=== PATIENT | female | born 1970 | race African-American/Black ===

== ENCOUNTER 2018-06-03 11:51 | Emergency (ER) | payer OTHER ==
[2018-06-03 12:07] VITALS: TEMP 98.6; BMI 43.9
--- NOTE | 2018-06-03 12:21 | PDOC ---
Attending Attestation - HPI HPI: 06/03/18 13:13 The patient is a 48-year-old female with past medical history significant for HTN, Kidney stone, DVT (2013, was on Lovenox for 1 month) presents to the emergency department with leg pain. The patient reports shes [place] amb[place] the [place] when an acute onset of R. leg pain presented. The patient reports she had been ambulating more than usual, secondary to starting a new job. The patient reports the pain is aggravated with flexion, with the severity of 8/10, relief noted with Ibuprofen. The patient reports associated concern of soreness to the back fo the legs and back pain to the lumbar region, with radiation bilaterally. Denies trauma or injury to the leg, recent travel or long car rides, fever, chills, nausea, vomiting, chest pain, or shortness of breath. The patient reports the pain is similar to prior DVT, but a little worse. Allergies: NKA Social history: No past or present use of tobacco, alcohol or recreational drug use. Surgical history: None reported PCP: Dr. Cuong Cabezas - Physicial Exam PE: 06/03/18 13:17 GENERAL: Awake, alert, and fully oriented, in no acute distress EXTREMITIES: No edema, tenderness, ecchymosis, erythema, deformities. - Medical Decision Making 06/03/18 13:14 Documentation prepared by April Farias, acting as vp medical for Nicole Gallardo MD. <April Farias - Last Filed: 06/03/18 13:17> - Medical Decision Making 06/03/18 14:03 Pt presents to the ED complaining of R leg pain and swelling that started while walking to the bus. Denies trauma. Pain is mostly confined to the area behind her R knee. Duplex performed to rule out dvt and is negative for thrombosis, but positive for popliteal cyst. Will discharge home with ibuprofen for randall' s cyst. <Nicole Gallardo - Last Filed: 06/03/18 14:08>
--- NOTE | 2018-06-03 12:48 | PDOC ---
History of Present Illness - General Chief Complaint: Pain Stated Complaint: PAIN Time Seen by Provider: 06/03/18 12:13 - History of Present Illness Initial Comments: 06/03/18 12:38 48F w/ pmhx of HTN and DVT (2013) presents with 4 day history of R lower extremity pain. Pt states the pain started while walking home from work to the train station. Pain is described as 8/10 and is worsened with knee flexion. Pain is alleviated with knee extension. She denies any trauma to the R lower extremity. Additionally, she complains of new onset back pain for the past 2 days. Pain starts in the lumbar region and radiates bilaterally. Back pain is rated 5/10. She states taking Ibuprofen which has given her mild relief from her pain. Denies hx of bleeding d/o, recent travel, miscarriages. Also denies f/ c, n/v, sob, chest pain, abd pain, urinary/bowel symptoms, vision changes, unintentional weight loss/gain. Of note, pt states she has had a history of DVT in 2013 where she was treated with Lovenox. She reports that her current pain is similar in nature when she had her previous DVT, but is more painful. 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 Past History - Past Medical History Allergies/Adverse Reactions: Allergies Allergy/AdvReac Type Severity Reaction Status Date / Time No Known Allergies Allergy Verified 06/03/18 12:07 Home Medications: Ambulatory Orders Amlodipine Besylate 10 mg PO DAILY 06/03/18 Asthma: No Cardiac Disorders: Yes (heart murmur) CVA: No COPD: No Diabetes: No GI Disorders: No Disorders: No HTN: Yes Hypercholesterolemia: No Kidney Stones: Yes Seizures: No - Surgical History Abdominal Surgery: No - Reproductive History (#): 1 Para: 1 - Suicide/Smoking/Psychosocial Hx Smoking Status: No Smoking History: Never smoked Have you smoked in the past 12 months: No Number of Cigarettes Smoked Daily: 0 Hx Alcohol Use: No Drug/Substance Use Hx: No Substance Use Type: None Hx Substance Use Treatment: No Review of Systems - Review of Systems Able to Perform ROS?: Yes Is the patient limited Marshallese proficient: No Constitutional: No: Chills, Fever HEENTM: No: Recent change in vision Respiratory: No: Shortness of Breath Cardiac (ROS): No: Chest Pain, Lightheadedness ABD/GI: No: Constipated, Diarrhea Musculoskeletal: Yes: See HPI (+Renay's sign) Neurological: No: Weakness, Unsteady Gait Endocrine: No: Change in Weight Hematologic/Lymphatic: No: Easy Bleeding, Easy Bruising (radiates bilaterally) *Physical Exam - Vital Signs Last Vital Signs Temp Pulse Resp BP Pulse Ox 98.6 F 49 L 18 151/63 100 06/03/18 12:04 06/03/18 12:04 06/03/18 12:04 06/03/18 12:04 06/03/18 12:04 - Physical Exam General Appearance: Yes: Appropriately Dressed, Obese HEENT: positive: EOMI, JESICA Neck: positive: Supple Respiratory/Chest: positive: Lungs Clear, Normal Breath Sounds Cardiovascular: positive: Regular Rhythm, Regular Rate, S1, S2, Systolic Murmur Vascular Pulses: Dorsalis-Pedis (R): 2+, Doralis-Pedis (L): 2+ Gastrointestinal/Abdominal: positive: Normal Bowel Sounds, Tender (mild tenderness to LUQ), Soft Musculoskeletal: positive: Vertebral Tenderness (lumbar spine, radiates bilaterally) Extremity: positive: Normal Range of Motion, Calf Tenderness (R lower extremity , ). 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 Will obtain RLE duplex for now. 06/03/18 14:00 -RLE Duplex neg for acute DVT. There is a 3.3 x 1.4 x 2.5 cm Merlos's cyst. -Recommend patient to cont taking Ibuprofen for pain and follow up with PCP. -DC to home *DC/Admit/Observation/Transfer Diagnosis at time of Disposition: Leg pain Qualifiers: Laterality: right Qualified Code(s): M79.604 - Pain in right leg - Discharge Dispostion Disposition: HOME Condition at time of disposition: Good Decision to Admit order: No - Referrals Referrals: Donna Hernandez MD [Primary Care Provider] - - Patient Instructions Additional Instructions: You were seen in the ED for complaints of right lower leg pain. In the ED, an ultrasound of your right leg was done that did not show any acute DVT (deep vein thrombosis), but did show a Merlos's cyst. There is no acute need for inpatient hospitalization at this time. You are being discharged home. Please follow up with your primary care doctor within 1 week. Please continue to take Ibuprofen for pain. If you experience worsening leg pain/swelling/redness, shortness of breath, chest pain, or problems walking, please proceed to your nearest emergency department immediately. - Post Discharge Activity
[2018-06-03 14:21] VITALS: BP 145/74; PULSE 47
== END 2018-06-03 14:19 | disposition home or self-care (01) ==
LOC: JER 11:51
DX: M71.21 Synovial cyst of popliteal space [Baker], right knee (principal); I10 Essential (primary) hypertension; Z86.718 Personal history of other venous thrombosis and embolism
CPT/HCPCS: 93971-TC; 99282-25

== ENCOUNTER 2018-12-27 03:21 | Observation (INO) | payer OTHER | END 2018-12-29 13:32 | disposition home or self-care (01) | LOC: JER 03:21 → JERBED 06:43 → J4W 22:57 ==

== ENCOUNTER 2019-04-05 23:01 | Emergency (ER) | payer OTHER ==
[2019-04-05 23:11] VITALS: BMI 44.1
--- NOTE | 2019-04-06 01:55 | PDOC ---
Attending Attestation - Resident Resident Name: PauletteCesario - ED Attending Attestation I have performed the following: I have examined & evaluated the patient, The case was reviewed & discussed with the resident, I agree w/resident's findings & plan - HPI HPI: 04/06/19 06:05 Pt comes with vaginal bleeding after sex; she had a PAP smear with ob?nurse obgyn Dr. Tavarez in Aug 6 months ago. Pt has no other medical issues. 04/06/19 06:07 Pt bled yesterday; today only soaked 1 pad, all day. We are not concerned about the level of bleeding. - Physicial Exam PE: 04/06/19 06:06 Agree with resident exam. Pt has an area of bleeding/friable vs injured skin at the cervix around 6 o' clock. Pt has no tenderness and no vaginal lacerations. - Medical Decision Making 04/06/19 06:07 Pt will follow with Dr. Tavarez next week. Return for worsening bleeding and/or dizziness, SOB, CP.
--- NOTE | 2019-04-06 03:00 | PDOC ---
History of Present Illness - General Chief Complaint: Vaginal Bleeding Stated Complaint: VAGINAL BLEEDING Time Seen by Provider: 04/06/19 01:54 History Source: Patient Exam Limitations: No Limitations - History of Present Illness Initial Comments: 48 yo F with no pmhx presents to the emergency department with painless vaginal bleeding that occurred starting yesterday after intercourse. Per the patient, she was abstinent for 1 year prior to the engagement. She states she had a pap smear [address] Tavarez that was negative. 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 Denies the following: vaginal foul discharge, dysuria, hematuria, diarrhea, abdominal pain, hematochezia, chest pain, SOB, fever, nausea, vomiting , and chills. Allergies: NKDA Past History - Past Medical History Allergies/Adverse Reactions: Allergies Allergy/AdvReac Type Severity Reaction Status Date / Time No Known Allergies Allergy Verified 04/05/19 23:11 Home Medications: Ambulatory Orders Amlodipine Besylate 10 mg PO DAILY 06/03/18 Amoxicillin/Potassium Clav [Amox-Clav 875-125 mg Tablet] 1 each PO BID 04/06/19 Asthma: No Cardiac Disorders: Yes (heart murmur) CVA: No COPD: No Diabetes: No GI Disorders: No Disorders: No HTN: Yes Hypercholesterolemia: No Kidney Stones: Yes Seizures: No - Surgical History Abdominal Surgery: No - Reproductive History Is Patient Now?: No (#): 1 Para: 1 Spontaneous : 0 - Suicide/Smoking/Psychosocial Hx Smoking Status: No Smoking History: Never smoked Have you smoked in the past 12 months: No Number of Cigarettes Smoked Daily: 0 Information on smoking cessation initiated: No Hx Alcohol Use: No Drug/Substance Use Hx: No Substance Use Type: None Hx Substance Use Treatment: No Review of Systems - Review of Systems Able to Perform ROS?: Yes Is the patient limited Burkinan proficient: No Constitutional: No: Chills, Diaphoresis, Fever, Weakness HEENTM: No: Blurred Vision, Double Vision, Ear Pain, Nose Pain, Throat Pain, Mouth Pain Respiratory: No: Cough, Shortness of Breath, Hemoptysis Cardiac (ROS): No: Chest Pain, Lightheadedness, Palpitations, Syncope ABD/GI: No: Constipated, Diarrhea, Nausea, Rectal Bleeding, Vomiting, Tarry Stools : Yes: Other (vaginal bleeding). No: Burning, Dysuria Musculoskeletal: No: Back Pain, Joint Pain, Neck Pain Integumentary: No: Bruising, Erythema, Rash Neurological: No: Headache, Numbness, Tingling, Tremors Psychiatric: No: Change in Appetite Endocrine: No: Unexplained Weight Gain Hematologic/Lymphatic: No: Anemia *Physical Exam - Vital Signs Last Vital Signs Temp Pulse Resp BP Pulse Ox 97.5 F L 65 18 149/75 100 04/06/19 01:10 04/06/19 01:10 04/06/19 01:10 04/06/19 01:10 04/06/19 01:10 - Physical Exam General Appearance: Yes: Nourished, Appropriately Dressed. No: Apparent Distress, Intoxicated HEENT: positive: EOMI, JESICA, Normal Voice, Symmetrical, Pharynx Normal, Hearing Grossly Normal. negative: Pale Conjunctivae, Scleral Icterus (R), Scleral Icterus (L), Muffled/Hoarse voice, Pharyngeal Erythema, Tonsillar Exudate, Tonsillar Erythema, Nasal Congestion, Rhinorrhea, Excessive drooling Neck: positive: Trachea midline, Supple. negative: Tender, Decreased range of motion, Lymphadenopathy (R), Lymphadenopathy (L), Tender lateral, Tender midline Respiratory/Chest: positive: Lungs Clear, Normal Breath Sounds. negative: Chest Tender, Respiratory Distress, Accessory Muscle Use Cardiovascular: positive: Regular Rhythm, Regular Rate, S1, S2. negative: Systolic Murmur Female Pelvic Exam: positive: normal external exam, cervical os closed, normal adnexa, lesions (friable lesion on cervix at the 6'oclock position. fungating mass in appearance. ), vaginal bleeding (not active bleeding) Gastrointestinal/Abdominal: positive: Normal Bowel Sounds, Flat, Soft. negative : Tender Lymphatic: negative: Adenopathy Musculoskeletal: positive: Normal Inspection. negative: CVA Tenderness, Vertebral Tenderness Extremity: positive: Normal Capillary Refill, Normal Inspection, Normal Range of Motion. 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 Initial vitals: Initial Vital Signs Temp Pulse Resp BP Pulse Ox 98.1 F 66 17 152/74 100 04/05/19 23:09 04/05/19 23:09 04/05/19 23:09 04/05/19 23:09 04/05/19 23:09 Work up: Laboratory Tests 04/06/19 04/06/19 04/06/19 03:30 03:30 03:30 WBC RBC Hgb Hct MCV MCH MCHC RDW Plt Count MPV Absolute Neuts (auto) Neutrophils % Lymphocytes % Monocytes % Eosinophils % Basophils % Nucleated RBC % Sodium Potassium Chloride Carbon Dioxide Anion Gap BUN Creatinine Est GFR (CKD-EPI)AfAm Est GFR (CKD-EPI)NonAf Random Glucose Calcium Total Bilirubin AST ALT Alkaline Phosphatase Total Protein Albumin Beta HCG, Quant Urine Color Yellow Urine Appearance Error Urine pH 5.5 Ur Specific [place] 1.017 Urine Protein Negative Urine Glucose (UA) Negative Urine Ketones Negative Urine Blood 3+ H Urine Nitrite Negative Urine Bilirubin Negative Urine Urobilinogen 0.2 Ur Leukocyte Esterase 1+ H Urine WBC (Auto) 1 Urine RBC (Auto) 345 Urine Casts (Auto) 14 U Pathogenic Cast Auto None U Epithel Cells (Auto) 5.2 Urine Bacteria (Auto) 1.2 Urine HCG, Qual Negative C. trachomatis (FAMILIA) Negative N. gonorrhoeae (FAMILIA) Negative 04/06/19 04/06/19 04/06/19 03:30 03:30 03:30 WBC 9.4 RBC 4.39 Hgb 11.1 Hct 35.0 MCV 79.7 L MCH 25.4 L MCHC 31.8 L RDW 15.0 Plt Count 315 MPV 6.6 L Absolute Neuts (auto) 6.3 Neutrophils % 66.1 Lymphocytes % 26.1 Monocytes % 6.8 Eosinophils % 0.3 Basophils % 0.7 Nucleated RBC % 0 Sodium 138 Potassium 4.1 Chloride 104 Carbon Dioxide 28 Anion Gap 7 L BUN 11.1 Creatinine 0.7 Est GFR (CKD-EPI)AfAm 120.43 Est GFR (CKD-EPI)NonAf 103.90 Random Glucose 100 Calcium 9.4 Total Bilirubin 0.5 AST 13 L ALT 15 Alkaline Phosphatase 59 Total Protein 8.5 H Albumin 3.7 Beta HCG, Quant < 1.0 Urine Color Urine Appearance Urine pH Ur Specific [place] Urine Protein Urine Glucose (UA) Urine Ketones Urine Blood Urine Nitrite Urine Bilirubin Urine Urobilinogen Ur Leukocyte Esterase Urine WBC (Auto) Urine RBC (Auto) Urine Casts (Auto) U Pathogenic Cast Auto U Epithel Cells (Auto) Urine Bacteria (Auto) Urine HCG, Qual C. trachomatis (FAMILIA) N. gonorrhoeae (FAMILIA) negative and negative for anemia. patient has blood in the urine likely from vaginal bleeding. no UTI. patient to be followed by her OBGYN physician for follow up care and management. given strict return precautions. Dispo: Discharge *DC/Admit/Observation/Transfer Diagnosis at time of Disposition: Vaginal bleeding - Discharge Dispostion Disposition: HOME Decision to Admit order: No - Referrals Referrals: Donna Hernandez MD [Primary Care Provider] - Angelica Tavarez MD [Staff Physician] - - Patient Instructions Printed Discharge Instructions: DI for Vaginal Bleeding Additional Instructions: You were seen in the emergency department for the evaluation of your vaginal bleeding. Your laboratory work was negative for acute process. Please follow up with your OBGYN physician for follow up care and management. Please return to the emergency department if you have worsening symptoms or new concerning symptoms. Thank you. - Post Discharge Activity
[2019-04-06 03:43] LABS: BASO % 0.7 % (0-2.0); EOS % 0.3 % (0-4.5); HEMOGLOBIN 11.1 GM/dL (10.7-15.3); LYMPH % 26.1 % (8-40); MCH 25.4 pg (25.7-33.7); MCHC 31.8 g/dl (32.0-36.0); MEAN CELL VOLUME 79.7 fl (80-96); MEAN PLT VOLUME 6.6 fl (7.5-11.1); MONO % 6.8 % (3.8-10.2); NEUT % 66.1 % (42.8-82.8); PLATELET COUNT 315 K/MM3 (134-434); RBC 4.39 M/mm3 (3.60-5.2); WHITE BLOOD COUNT 9.4 K/mm3 (4.0-10.0)
[2019-04-06 03:44] LABS: EPI CELLS 5.2 /HPF (0-5/HPF); HYALINE CASTS 14 /lpf (0-8); PH,URINE 5.5 (5.0-8.0); URINE APPEARANCE Error; URINE BACTERIA 1.2 /hpf (NEGATIVE); URINE BILIRUBIN NEGATIVE (NEGATIVE); URINE COLOR YELLOW; URINE GLUCOSE (UA) NEGATIVE (NEGATIVE); URINE KETONE NEGATIVE (NEGATIVE); URINE LEUK ESTERASE 1+ (NEGATIVE); URINE NITRITE NEGATIVE (NEGATIVE); URINE PROTEIN NEGATIVE (NEGATIVE); URINE RBC 345 /hpf (0-4); URINE UROBILINOGEN 0.2 mg/dL (0.2-1.0); URINE WBC 1 /hpf (0-5)
[2019-04-06 04:08] LABS: ALBUMIN 3.7 g/dl (3.4-5.0); BILIRUBIN,TOTAL 0.5 mg/dL (0.2-1); BLOOD UREA NITROGEN 11.1 mg/dL (7-18); CALCIUM 9.4 mg/dL (8.5-10.1); CREATININE 0.7 mg/dL (0.55-1.3); POTASSIUM 4.1 mmol/L (3.5-5.1); TOT PROT 8.5 g/dl (6.4-8.2)
[2019-04-06 05:10] VITALS: BP 151/85; PULSE 60; TEMP 98.3
== END 2019-04-06 06:13 | disposition home or self-care (01) ==
LOC: JER 23:01
DX: N93.0 Postcoital and contact bleeding (principal)
CPT/HCPCS: 36415; 80053; 81003; 84702; 84703; 85025; 87086; 87491; 87591; 99283-25

== ENCOUNTER 2021-09-27 09:49 | Emergency (ER) | payer BC ==
[2021-09-27 10:09] VITALS: BP 147/83; PULSE 71; TEMP 97.7; BMI 46.5
[2021-09-27 11:37] LABS: BASO % 0.4 % (0-2.0); EOS % 5.1 % (0-4.5); HEMOGLOBIN 11.3 GM/dL (10.7-15.3); LYMPH % 24.5 % (8-40); MCH 26.4 pg (25.7-33.7); MCHC 32.3 g/dl (32.0-36.0); MEAN CELL VOLUME 81.6 fl (80-96); MEAN PLT VOLUME 6.8 fl (7.5-11.1); MONO % 6.9 % (3.8-10.2); NEUT % 63.1 % (42.8-82.8); PLATELET COUNT 286 10^3/uL (134-434); RBC 4.29 M/mm3 (3.60-5.2); RDW 14.6 % (11.6-15.6); WHITE BLOOD COUNT 7.2 K/mm3 (4.0-10.0)
[2021-09-27 11:55] LABS: CALCIUM 9.5 mg/dL (8.5-10.1)
[2021-09-27 11:56] LABS: ALBUMIN 3.7 g/dl (3.4-5.0); BLOOD UREA NITROGEN 8.5 mg/dL (7-18)
[2021-09-27 11:59] LABS: CREATININE 0.7 mg/dL (0.55-1.3)
[2021-09-27 12:01] LABS: BILIRUBIN,TOTAL 0.6 mg/dL (0.2-1); TOT PROT 8.2 g/dl (6.4-8.2)
[2021-09-27] MEDS ORDERED: MAG HYDROX/AL HYDROX/SIMETH -MYLANTA- ORAL SUSPENSION PO ONE (12:31)
[2021-09-27] MEDS ORDERED: FAMOTIDINE 20 MG TABLET PO ONE (12:31)
[2021-09-27] MEDS ORDERED: MAG HYDROX/AL HYDROX/SIMETH 30 ML UNIT-DOSE CUP ONE (12:33)
[2021-09-27] MEDS ORDERED: FAMOTIDINE 20 MG TABLET ONE (12:33)
== END 2021-09-27 13:44 | disposition home or self-care (01) ==
LOC: JER 09:49
DX: R07.9 Chest pain, unspecified (principal); R14.2 Eructation
CPT/HCPCS: 36415; 71046-TC-FY; 80053; 84484; 85025; 93005; 93010; 99285-25

== ENCOUNTER 2022-01-15 12:37 | Emergency (ER) | payer BC ==
[2022-01-15 13:05] VITALS: BP 154/78; PULSE 54; TEMP 98.5; BMI 45.8
[2022-01-15] MEDS ORDERED: ACETAMINOPHEN 500 MG TABLET (FP) PO ONE (13:29)
[2022-01-15 14:29] LABS: BASO % 0.3 % (0-2.0); HEMATOCRIT 35.3 % (32.4-45.2); HEMOGLOBIN 11.3 GM/dL (10.7-15.3); LYMPH % 26.2 % (8-40); MCH 25.5 pg (25.7-33.7); MEAN CELL VOLUME 79.6 fl (80-96); MEAN PLT VOLUME 6.8 fl (7.5-11.1); MONO % 6.8 % (3.8-10.2); NEUT % 64.7 % (42.8-82.8); PLATELET COUNT 315 10^3/uL (134-434); RBC 4.44 M/mm3 (3.60-5.2); RDW 14.2 % (11.6-15.6); WHITE BLOOD COUNT 7.3 K/mm3 (4.0-10.0)
[2022-01-15] MEDS ORDERED: ACETAMINOPHEN 500 MG TABLET (FP) ONE (14:33)
[2022-01-15 14:37] LABS: PROTHROMBIN TIME (PATIENT) 11.5 SEC (9.7-13.0)
[2022-01-15 14:40] LABS: ACTIVATED PTT 32.7 SECONDS (25.2-36.5)
[2022-01-15 14:44] LABS: CALCIUM 9.7 mg/dL (8.5-10.1)
[2022-01-15 14:45] LABS: ALBUMIN 3.6 g/dl (3.4-5.0); BLOOD UREA NITROGEN 11.2 mg/dL (7-18)
[2022-01-15 14:48] LABS: CREATININE 0.7 mg/dL (0.55-1.3)
[2022-01-15 14:49] LABS: BILIRUBIN,TOTAL 0.6 mg/dL (0.2-1)
[2022-01-15 14:50] LABS: TOT PROT 8.3 g/dl (6.4-8.2)
[2022-01-15 14:55] LABS: MAGNESIUM 2.2 mg/dL (1.8-2.4)
== END 2022-01-15 19:00 | disposition home or self-care (01) ==
LOC: JER 12:37
DX: R07.9 Chest pain, unspecified (principal); R60.9 Edema, unspecified
CPT/HCPCS: 36415; 71275-TC; 80053; 83735; 84484; 84703; 85025; 85610; 85730; 86850; 86900; 86901; 93005; 93010; 93971-TC; 99285-25; C9803-CS; Q9967; U0003; U0005